=== PATIENT | female | born 1990 | race Caucasian/White ===

== ENCOUNTER 2021-09-12 19:42 | Emergency (ER) | payer BC ==
[~2021-09-12] VITALS: Ht 175.3 cm; Wt 81.6 kg
[2021-09-12 19:45] VITALS: BP_SYST 119
--- NOTE | 2021-09-12 21:09 | NUR ---
Received patient to ER w/ c/o vaginal bleeding. patient states that she is approx 5-6 weeks , denies any abd pain at this time. Introduced self to patient, positioned for comfort. Continue to monitor.
--- NOTE | 2021-09-12 21:09 | NUR ---
Patient to ER bed 3 to gown for evaluation. Side rails up. Report given to Junior MATOS.
--- NOTE | 2021-09-12 21:25 | NUR ---
Urine HCG done, results Positive GTIN: [id number] LOT: [id number] EXP: 2023-01-19
--- NOTE | 2021-09-12 21:30 | NUR ---
Blood for labwork drawn from [facility] by [employer]. Patient tolerated procedure.
[2021-09-12 21:41] LABS: BASOPHILS # (AUTO) 0.1 K/uL (0.0-0.2); BASOPHILS % (AUTO) 1.1 % (0.0-2.0); EOSINOPHILS # (AUTO) 0.2 K/uL (0.0-0.4); EOSINOPHILS % (AUTO) 1.5 % (0.0-4.0); HEMATOCRIT 40.3 % (36-48); HEMOGLOBIN 13.9 g/dL (12.0-16.0); LYMPHOCYTES # (AUTO) 2.3 K/uL (1.0-5.5); LYMPHOCYTES % (AUTO) 21.7 % (20.5-51.5); MEAN CORPUSCULAR HEMOGLOBIN 32 pg (27-31); MEAN CORPUSCULAR HGB CONC 35 % (32-36); MEAN CORPUSCULAR VOLUME 92 fL (79.0-98.0); MONOCYTES # (AUTO) 0.8 K/uL (0.0-1.0); MONOCYTES % (AUTO) 7.4 % (1.7-9.3); NEUTROPHILS # (AUTO) 7.2 K/uL (1.8-7.7); NEUTROPHILS % (AUTO) 68.3 % (40.0-70.0); PLATELET COUNT (AUTO) 319 K/uL (130-430); RED BLOOD CELL COUNT(AUTO) 4.37 MIL/uL (4.2-6.2); RED CELL DISTRIBUTION WIDTH 12.8 % (9.0-15.0); WHITE BLOOD COUNT (AUTO) 10.6 K/uL (4.8-10.8)
--- NOTE | 2021-09-12 21:50 | NUR ---
u/s tech at bedside Patient transported to radiology via ambulatory, accompanied by u/s tech.
--- NOTE | 2021-09-12 22:13 | NUR ---
Returned from radiology, back to [facility].
[2021-09-12 23:00] VITALS: BP_SYST 110
--- NOTE | 2021-09-12 23:00 | NUR ---
Patient given written and verbal discharge instructions and verbalizes understanding. ER MD discussed with patient the results and treatment provided. Patient in stable condition. ID arm band removed. Patient educated on pain management and to follow up with PMD. Pain Scale 0. Opportunity for questions provided and answered. Medication side effect fact sheet provided.
== END 2021-09-12 23:00 | disposition home or self-care (01) ==
LOC: SED 19:42
DX: O20.9 Hemorrhage in early pregnancy, unspecified (principal); Z3A.01 Less than 8 weeks gestation of pregnancy
CPT/HCPCS: 36415; 76801; 76817; 81002; 81025; 84702; 85025; 86886; 86900; 86901; 99284